=== PATIENT | female | born 2005 | race Two or more races ===

== ENCOUNTER 2025-03-18 01:17 | Emergency (ER) | payer SELFPAY ==
[2025-03-18 01:17] VITALS: BMI 32.4
--- NOTE | 2025-03-18 02:25 | PC.NURSE ---
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
== END 2025-03-18 02:29 | disposition left against medical advice (07) ==
LOC: SERX 03:28
PROVIDERS: Emergency Provider Emergency Medicine
DX: Z53.21 Procedure and treatment not carried out due to patient leaving prior to being seen by health care provider (principal)

== ENCOUNTER 2025-07-21 01:35 | Emergency (ER) | payer MEDICAID, SELFPAY ==
[2025-07-21 01:36] VITALS: BP 141/85; PULSE 109; RESP 18; TEMP 36.7; O2SAT 99; BMI 36.3
--- NOTE | 2025-07-21 01:39 | EKG_ITS ---
[facility] Test Date: 2025-07-21 Pat Name: MICHELLE TAVERASEDepartment: Room: - Gender: Female Enterer: : 2005 Requested By: Carlitos Oviedo Order Number: [id number] Reading MD: Carlitos Oviedo Measurements Intervals [place] Rate: 98 P: 63 MO: 141 QRS: 86 QRSD: 90 T: 37 QT: 330 QTc: 423 Interpretive Statements SINUS RHYTHM NONSPECIFIC T-WAVE ABNORMALITY No previous ECG available for comparison /[id number]/[email or web address]/[id number].pdf
--- NOTE | 2025-07-21 01:54 | XR_ITS ---
EXAMINATION: PA chest single view TECHNIQUE: Upright PA chest single view Date and time: July 21, 2025, 0208 hours INDICATIONS: Left-sided chest pain beginning 5 days ago FINDINGS: Normal heart size The lungs are clear. The osseous structures are intact IMPRESSION: No active disease
--- NOTE | 2025-07-21 02:01 | EDNOTE_ITS ---
ED Chest Pain RME/HPI General Chief Complaint: Chest Pain Stated Complaint: L SIDED CHEST PAIN Time Seen by Provider: 07/21/25 01:54 Arrival date/time: 07/21/25 01:35 19F with history of anxiety presents to ED with 5 days of L-sided CP that is worse with deep breath. Patient is on combined OCP. Patient denies URI symptoms. Patient states this feels different than her anxiety/panic attacks. Limitations: no limitations Related Data Allergies Allergy/AdvReac Type Severity Reaction Status Date / Time No Known Allergies Allergy Verified 07/21/25 01:40 Review of Systems Review of Systems Systems Reviewed: All systems reviewed, normal except as documented Cardiovascular Cardiovascular: Reports as per HPI and Reports chest pain Past Medical History Social History SMOKING STATUS: Never smoker ED Exam General Limitations: Present no limitations General appearance: Present alert, in no apparent distress and anxious Head Head exam: Present atraumatic Neck Neck exam: Present normal inspection, full ROM and trachea midline Chest Chest inspection: Present symmetric chest wall rise and tenderness Respiratory Respiratory exam: Present normal lung sounds bilaterally Neurological Exam Neurological exam: Present alert and oriented X3 Psychiatric Psychiatric exam: Present normal affect and anxious Skin Skin exam: Present warm, dry, intact and normal color Course Quality Measures none Orders Category Date Time Status EKG (ED ONLY) *Do not use* NOW Care 07/21/25 01:39 Completed EKG (ED Only) Stat Exams 07/21/25 01:39 Draft XR chest 1V portable Stat Exams 07/21/25 01:54 Taken CBC Stat Lab 07/21/25 02:17 Completed CMP [Comprehensive Metabolic Panel] Stat Lab 07/21/25 02:17 Completed D-Dimer Stat Lab 07/21/25 02:17 Completed Troponin I Stat Lab 07/21/25 02:17 Completed Vital Signs Vital signs: Vital Signs Temperature 98.0 F 07/21/25 01:36 Pulse Rate 109 H 07/21/25 01:36 Respiratory Rate 18 07/21/25 01:36 Blood Pressure 141/85 H 07/21/25 01:36 Pulse Oximetry (%) 99 07/21/25 01:36 Oxygen Delivery Method Room Air 07/21/25 01:36 O2 at 99% on RA and WNLs Chest Pain MDM Narrative MDM Narrative:: 19F with history of anxiety presents to ED with 5 days of L-sided CP that is worse with deep breath. Patient is on combined OCP. Patient denies URI symptoms. Patient states this feels different than her anxiety/panic attacks. Physical exam reveals some chest wall tenderness. Normal WOB and clear lungs. Patient is afebrile, alert, but anxious. EKG is NSR. Wet CXR unremarkable pending official report. No leukocytosis or anemia. CMP unremarkable. Trop and D-dimer normal. Patient data External records reviewed:: None Clinical information provided by:: patient Social determinants that could affect healthcare access:: mental health Patient has the following chronic illnesses:: anxiety How is presenting disease/condition affected by chronic disease/condition?: exacerbated by Evaluation data The following diagnostics were reviewed and interpreted by me:: lab results, radiology exam(s) and EKG tracing(s) Lab and/or radiology exams considered but not ordered:: ordered Interpretation Summary: above Medications / Prescriptions Medications or Prescriptions considered but not ordered:: not ordered Medication administrations:: n/a Consultations Consultation(s) initiated? (list below): No Diagnosis Chest Pain Differential Diagnosis: fracture of rib, pneumothorax, stable angina, unstable angina pectoris, atypical chest pain, st elevation myocardial infarction, costochondritis, chest pain, biliary colic and other (PE) Most likely diagnosis given after review of the tests above:: atypical chest pain, costochondritis Admission Indicated Admission indicated?: not indicated Admission Request Was there a request for admission?: No Disposition Plan Disposition Plan: Discharge Discharge Attestation Discharge Attestation: The patient and all family members were given an opportunity to ask questions and understood the discharge instructions. Discharge instructions specifically effects, indications for sooner follow up or return to the emergency department, and the expected course of current diagnosis. Patient condition: Stable Discharge Plan Plan Patient Disposition: HOME (Self Care) Discharge Disposition comment: Stable Prescriptions/Referrals Referrals: MARLON QUIJANO [Primary Care Provider] - In 1 week Problem List Clinical Impression: Costochondritis, Atypical chest pain Patient/Caregiver Discharge Instructions Education Materials: ED Chest Pain, Uncertain Cause, ED Chest Wall Pain, Costochondritis Additional Instructions: Please follow-up with PCP within 24-48 hours and return immediately if symptoms worsen. NSAIDs like ibuprofen tend to work better for this type of pain. Print Language: Persian Stand Alone Forms: Patient Portal Info Letter ISREAL/KUN Supervising Physician ISREAL/KUN Supervising Physician: Dr. Tello
[2025-07-21 02:28] LABS: Basophils # (Auto) 0.1 Thou/mm3 (0.0-0.2); Basophils % (Auto) 1 % (0-2.5); Eosinophils # (Auto) 0.1 Thou/mm3 (0.0-0.5); Eosinophils % (Auto) 1 % (0-10); Hematocrit 41.2 % (36.0-46.0); Hemoglobin 13.1 g/dL (12.0-16.0); Immature Granulocytes Auto 0.02 Thou/mm3 (0.00-0.00); Lymphocytes # (Auto) 3.2 Thou/mm3 (1.0-4.8); Lymphocytes % (Auto) 31 % (10-50); Mean Corpuscular HGB Conc 31.8 g/dl (31.0-37.0); Mean Corpuscular Hemoglobin 24.8 pg (25.0-35.0); Mean Corpuscular Volume 78 fL (80-100); Monocytes # (Auto) 0.6 Thou/mm3 (0.0-0.8); Monocytes % (Auto) 6 % (0-12); Neutrophils # (Auto) 6.5 Thou/mm3 (1.8-7.7); Neutrophils % (Auto) 62 % (37-80); Nucleated Red Blood Cell # 0.00 Thou/mm3 (0.00-0.00); Nucleated Red Blood Cell % 0 /100 WBC (0); Platelet Count 355 Thou/mm3 (140-440); RDW Standard Deviation 42.5 fL (36.4-46.3); Red Blood Count 5.29 Miln/mm3 (4.00-5.20); White Blood Count 10.5 Thou/mm3 (3.6-11.0)
[2025-07-21 02:51] LABS: Alanine Aminotransferase 29 U/L (10-49); Albumin, Serum 4.5 gm/dL (3.5-5.0); Albumin/Globulin Ratio 1.6 (1.2-2.2); Alkaline Phosphatase 72 U/L (46-116); Anion Gap 10 (7-16); Aspartate Amino Transferase 16 U/L (0-34); BUN/Creatinine Ratio 11 Ratio (12-20); Bilirubin,Total 0.3 mg/dL (0.3-1.2); Blood Urea Nitrogen 9 mg/dL (9-23); Calcium 9.3 mg/dL (8.3-10.6); Calcium (Corrected) 9.3 mg/dL (8.5-10.1); Carbon Dioxide 23.8 mMol/L (20.0-31.0); Chloride 107 mMol/L (98-107); Creatinine (Component) 0.8 mg/dL (0.6-1.3); Estimated Creatinine Clearance 120.5 mL/min (>60); Globulin 2.9 gm/dL (2.3-3.5); Glucose 106 mg/dL (74-106); Osmolality,Calculated 279 (275-295); Potassium 3.6 mMol/L (3.4-5.1); Sodium 141 mMol/L (136-145); Total Protein 7.4 gm/dL (5.7-8.2); Troponin I < 0.002 ng/mL (0.0-0.045); eGFR > 60 See Note
[2025-07-21 03:03] LABS: D-Dimer < 250 ng/mL (<600)
== END 2025-07-21 03:10 | disposition home or self-care (01) ==
PROVIDERS: Physician Assistant; Emergency Provider Emergency Medicine; PCP Nurse Practitioner Family
DX: M94.0 Chondrocostal junction syndrome [Tietze] (principal); F41.0 Panic disorder [episodic paroxysmal anxiety]
CPT/HCPCS: 36415; 71045; 80053; 84484; 85025; 85379; 93005; 99284